=== PATIENT | male | born 1950 | race Caucasian/White ===

== ENCOUNTER 2017-04-02 18:03 | Inpatient (IN) | payer MEDICARE ==
[~2017-04-02] VITALS: Ht 175.3 cm; Wt 84.9 kg
[~2017-04-02 18:03] MED LIST: ALLO100T30 PO; HYDR12.53 PO; LEVO125T PO; LISI-167 PO
[2017-04-02 19:53] LABS: BLOOD UREA NITROGEN 23 mg/dL (7-18)
[2017-04-02] MEDS ORDERED: ASPIRIN 81 MG TABLET CHEW PO ONE (21:30)
[2017-04-02] MEDS ORDERED: ASPIRIN 81 MG TABLET CHEW ONE (21:41)
[2017-04-02] MEDS ORDERED: ASPI-496 PO (21:46)
[2017-04-02] MEDS ORDERED: LISI40TA PO (21:46)
[2017-04-02] MEDS ORDERED: ALLO100T30 PO (21:46)
[2017-04-02] MEDS ORDERED: POLYETHYLENE GLYCOL 17 GM PACKET PO PRN (22:00)
[2017-04-02] MEDS ORDERED: BISACODYL 10 MG SUPP PR PRN (22:00)
[2017-04-02] MEDS ORDERED: ATORVASTATIN 40 MG TABLET PO SCH (22:00)
[2017-04-02] MEDS ORDERED: DOCUSATE 100 MG CAPSULE PO PRN (22:00)
[2017-04-02] MEDS ORDERED: ACETAMINOPHEN 325 MG TABLET PO PRN (22:00)
[2017-04-02] MEDS ORDERED: LABETALOL 5MG/ML, 20ML IVPush PRN (22:00)
[2017-04-02] MEDS ORDERED: ENOXAPARIN 40 MG/0.4 ML SQ SCH (22:00)
[2017-04-03 00:57] VITALS: BP 168/96
[2017-04-03] MEDS ORDERED: ALLOPURINOL MC SCH (01:00)
[2017-04-03] MEDS ORDERED: LISINOPRIL 20 MG TABLET PO SCH ×2 (01:30→09:00)
[2017-04-03] MEDS ORDERED: ALLOPURINOL 300 MG TABLET PO SCH (01:30)
[2017-04-03 05:43] LABS: BLOOD UREA NITROGEN 21 mg/dL (7-18)
[2017-04-03 05:56] LABS: ASPARTATE AMINO TRANSFERASE 24 U/L (15-37)
[2017-04-03] MEDS ORDERED: LEVOTHYROXINE 125 MCG TABLET PO SCH (06:00)
[2017-04-03 07:09] VITALS: BP 129/86
[2017-04-03] MEDS ORDERED: GADOBUTROL 7.5 MMOL/7.5 ML PFS ONE (08:56)
[2017-04-03] MEDS ORDERED: CLOPIDOGREL 75 MG TABLET PO SCH (09:00)
[2017-04-03] MEDS ORDERED: ALLOPURINOL 100 MG TABLET PO SCH (09:00)
[2017-04-03 12:48] VITALS: BP 144/81
[2017-04-03] MEDS ORDERED: CLOP75TA PO (15:18)
[2017-04-03] MEDS ORDERED: ATOR40TA78 PO (15:18)
== END 2017-04-03 16:46 | disposition home or self-care (01) | DRG 66 ==
LOC: ED 21:08 → EDIP 21:09 → ED 21:18 → 4WST 04-03 00:41 → DCLOUNGE 04-03 16:25
PROVIDERS: ADMIT Internal Medicine; ATTEND Internal Medicine
DX: I63.9 Cerebral infarction, unspecified (principal); E03.9 Hypothyroidism, unspecified; I10 Essential (primary) hypertension; M10.9 Gout, unspecified; Z79.82 Long term (current) use of aspirin; Z82.3 Family history of stroke; Z82.49 Family history of ischemic heart disease and other diseases of the circulatory system; Z85.828 Personal history of other malignant neoplasm of skin; Z79.899 Other long term (current) drug therapy
CPT/HCPCS: 36415; 70450; 70553; 72125; 80048; 80053; 82040; 83735; 84439; 84443; 85025; 85610; 85730; 93005; 93880; A9585; J1650

== ENCOUNTER → 2017-06-26 | Day surgery (SDC) | payer MEDICARE ==
[~2017-06-26] MED LIST changes: +ASPI-496 PO; +ATOR40TA78 PO; +CLOP75TA PO; +LIDOCAINE/PF 1%-EPI 1:200K, 30 ML ONE; +LISI40TA PO
== END ==
LOC: CACL 10:37
PROVIDERS: ATTEND Internal Medicine Cardiovascular Disease
DX: I63.9 Cerebral infarction, unspecified (principal); I10 Essential (primary) hypertension; Z72.89 Other problems related to lifestyle
CPT/HCPCS: 33282; C1764; J3490

== ENCOUNTER → 2017-07-29 | Outpatient (CLI) | payer MEDICARE ==
[~2017-07-29] MED LIST changes: -LIDOCAINE/PF 1%-EPI 1:200K, 30 ML ONE
== END | disposition home or self-care (01) ==
LOC: CFH 12:23
PROVIDERS: ATTEND Internal Medicine Cardiovascular Disease
DX: I82.4Z2 Acute embolism and thrombosis of unspecified deep veins of left distal lower extremity (principal); Q21.1 Atrial septal defect; G45.8 Other transient cerebral ischemic attacks and related syndromes
CPT/HCPCS: 93970

== ENCOUNTER 2018-09-21 18:43 | Emergency (ER) | payer MEDICARE ==
[~2018-09-21] VITALS: Ht 175.3 cm; Wt 89.0 kg
[~2018-09-21 18:43] MED LIST changes: +HYDR12.517 PO; -HYDR12.53 PO
[2018-09-21 19:15] LABS: BASOPHILS # (AUTO) 0.02 x10^3/uL (0-0.1); BASOPHILS % (AUTO) 0 % (0-1); EOSINOPHILS % (AUTO) 0 % (1-7); LYMPHOCYTES # (AUTO) 0.67 x10^3/uL (1-3.4); LYMPHOCYTES % (AUTO) 6 % (22-44); MD NO; MEAN CORPUSCULAR HEMOGLOBIN 30.7 pg (27.5-34.5); MEAN CORPUSCULAR HGB CONC 33.7 g/dL (33.2-36.2); MEAN PLATELET VOLUME 9.6 fL (7.4-10.4); MONOCYTES # (AUTO) 0.38 x10^3/uL (0.2-0.8); MONOCYTES % (AUTO) 3 % (2-9); NEUTROPHILS # (AUTO) 11.09 x10^3/uL (1.8-6.8); NEUTROPHILS % (AUTO) 91 % (42-75); PLATELET COUNT 169 x10^3/uL (130-400); RED BLOOD COUNT 5.17 x10^6/uL (4.38-5.82); RED CELL DISTRIBUTION WIDTH 15.6 % (9.4-14.8)
[2018-09-21] MEDS ORDERED: SODIUM CHLORIDE 0.9% 1,000 ML IV ONE (19:25)
[2018-09-21 19:26] LABS: ALANINE AMINOTRANSFERASE 41 U/L (12-78); ALBUMIN 3.7 g/dL (3.4-5.0); ANION GAP 10 mmol/L (5-15); CALCIUM 8.9 mg/dL (8.5-10.1); CHLORIDE 104 mmol/L (98-107); CREATININE 1.54 mg/dL (0.7-1.3)
[2018-09-21 19:29] LABS: ALKALINE PHOSPHATASE 98 U/L (45-117); BILIRUBIN,TOTAL 0.7 mg/dL (0.2-1.0); TOTAL PROTEIN 7.3 g/dL (6.4-8.2)
[2018-09-21] MEDS ORDERED: HYDROmorphone 2 MG/ML, 1ML IVPush PRN (19:30)
[2018-09-21] MEDS ORDERED: SODIUM CHLORIDE FLUSH 10ML SYR IVF ONE (19:30)
[2018-09-21] MEDS ORDERED: ONDANSETRON 2MG/ML, 2ML IVPush ONE (19:30)
[2018-09-21] MEDS ORDERED: ONDANSETRON 2MG/ML, 2ML ONE (19:46)
[2018-09-21] MEDS ORDERED: KETOROLAC 30 MG/1 ML ONE (19:46)
[2018-09-21] MEDS ORDERED: HYDROmorphone 2 MG/ML, 1ML ONE (19:47)
[2018-09-21] MEDS ORDERED: KETOROLAC 30 MG/1 ML IVPush ONE (20:00)
[2018-09-21 20:03] LABS: MICROSCOPIC AUTO
[2018-09-21 20:05] LABS: CULTURE INDICATED? NO
[2018-09-21 21:07] VITALS: BP 147/70
== END 2018-09-21 21:09 | disposition home or self-care (01) ==
LOC: ED 20:50
DX: N13.2 Hydronephrosis with renal and ureteral calculous obstruction (principal); I10 Essential (primary) hypertension; Z85.850 Personal history of malignant neoplasm of thyroid
CPT/HCPCS: 36415; 74176; 80053; 81001; 85025; 96374; 96375; 99284; J1170; J1885; J2405; J7030

== ENCOUNTER 2018-10-14 10:41 | Day surgery (SDC) | payer MEDICARE ==
[2018-10-14] MEDS ORDERED: LIDOCAINE 2%, 20ML ONE (11:11)
[2018-10-14] MEDS ORDERED: MAGN400T36 PO (11:28)
[2018-10-14] MEDS ORDERED: CHOL100012 PO (11:28)
[2018-10-14] MEDS ORDERED: UBIQ100C3 PO (11:28)
[2018-10-14] MEDS ORDERED: VITA1TAB19 PO (11:28)
== END 2018-10-14 12:40 | disposition home or self-care (01) ==
LOC: CACL 10:41
PROVIDERS: ATTEND Internal Medicine Cardiovascular Disease
DX: Z45.09 Encounter for adjustment and management of other cardiac device (principal); I10 Essential (primary) hypertension; E78.5 Hyperlipidemia, unspecified; F10.10 Alcohol abuse, uncomplicated; Z85.850 Personal history of malignant neoplasm of thyroid; Z86.73 Personal history of transient ischemic attack (TIA), and cerebral infarction without residual deficits; Z79.899 Other long term (current) drug therapy; Z98.890 Other specified postprocedural states; Z80.42 Family history of malignant neoplasm of prostate; Z82.49 Family history of ischemic heart disease and other diseases of the circulatory system
CPT/HCPCS: 33286; J3490; 33284; 33285; C1764

== ENCOUNTER 2019-04-16 10:03 | Emergency (ER) | payer MEDICARE ==
[~2019-04-16 10:03] MED LIST changes: +CHOL100012 PO; +MAGN400T36 PO; +UBIQ100C3 PO; +VITA1TAB19 PO
--- NOTE | 2019-04-16 10:34 | NUR ---
PT AMBULATORY TO ROOM. STATES HE HAS RIGHT ARM NUMBNESS THAT BEGAN AT 0600 THIS MORNING ALONG WITH DIFFICULTY MOVING ARM. PT NOW MOVING ARM APPROPRIATELY BUT STATES THE NUMBNESS IS STILL THERE. DENIES N/T ANYWHERE ELSE. SENSATION EQUAL BILATERALLY. NADN. VSS. PT RESTING IN [place]. CALL LIGHT IN REACH.
--- NOTE | 2019-04-16 11:00 | NUR ---
MD AT BEDSIDE TO UPDATE PT ON POC. SWALLOW EVALUATION PERFORMED. NO SWALLOWING ISSUES NOTED. NADN. CALL LIGHT IN REACH. PT RESTING IN [facility].
[2019-04-16] MEDS ORDERED: SODIUM CHLORIDE FLUSH 10ML SYR IVF ONE (11:30)
[2019-04-16 11:54] LABS: BASOPHILS # (AUTO) 0.02 x10^3/uL (0-0.1); BASOPHILS % (AUTO) 0 % (0-1); EOSINOPHILS # (AUTO) 0.05 x10^3/uL (0-0.4); EOSINOPHILS % (AUTO) 1 % (1-7); LYMPHOCYTES # (AUTO) 0.95 x10^3/uL (1-3.4); LYMPHOCYTES % (AUTO) 14 % (22-44); MD NO; MEAN CORPUSCULAR HEMOGLOBIN 30.1 pg (27.5-34.5); MEAN CORPUSCULAR HGB CONC 32.4 g/dL (33.2-36.2); MEAN CORPUSCULAR VOLUME 92.7 fL (81-97); MEAN PLATELET VOLUME 9.2 fL (7.4-10.4); MONOCYTES # (AUTO) 0.51 x10^3/uL (0.2-0.8); MONOCYTES % (AUTO) 8 % (2-9); NEUTROPHILS # (AUTO) 5.18 x10^3/uL (1.8-6.8); NEUTROPHILS % (AUTO) 77 % (42-75); PLATELET COUNT 153 x10^3/uL (130-400); RED BLOOD COUNT 4.82 x10^6/uL (4.38-5.82); RED CELL DISTRIBUTION WIDTH 15.1 % (9.4-14.8)
--- NOTE | 2019-04-16 11:59 | NUR ---
PT BACK FROM MRI. VSS. COFFEY. CALL LIGHT IN REACH. PT RESTING IN [facility].
[2019-04-16 12:02] LABS: INTERNATIONAL NORMALIZED RATIO 1.04 (0.93-1.1); PROTHROMBIN TIME 10.9 Seconds (9.6-11.5)
[2019-04-16 12:03] LABS: ALBUMIN 3.7 g/dL (3.4-5.0); ANION GAP 5 mmol/L (5-15); CALCIUM 8.9 mg/dL (8.5-10.1); CHLORIDE 111 mmol/L (98-107); CREATININE 0.96 mg/dL (0.7-1.3)
--- NOTE | 2019-04-16 13:09 | NUR ---
PT RESTING ON [employer]. VSS. COFFEY. CALL LIGHT IN REACH.
[2019-04-16 13:42] VITALS: BP 126/78
--- NOTE | 2019-04-16 13:42 | NUR ---
PT RESTING ON GURNEY. NADN. [facility]. UPDATED ON POC FOR US.
== END 2019-04-16 14:37 | disposition home or self-care (01) ==
LOC: ED 14:35
DX: G56.21 Lesion of ulnar nerve, right upper limb (principal); E03.9 Hypothyroidism, unspecified; M10.9 Gout, unspecified; Z86.73 Personal history of transient ischemic attack (TIA), and cerebral infarction without residual deficits
CPT/HCPCS: 36415; 70551; 80048; 82040; 85025; 85610; 85730; 93880; 99284

== ENCOUNTER → 2019-10-21 | Outpatient (CLI) | payer MEDICARE | END | disposition home or self-care (01) | LOC: CFH 09:47 | PROVIDERS: ATTEND Student in an Organized Health Care Education/Training Program | DX: N28.1 Cyst of kidney, acquired (principal); N20.0 Calculus of kidney; N20.1 Calculus of ureter | CPT/HCPCS: 74176 ==

== ENCOUNTER → 2020-02-14 | Outpatient (CLI) | payer MEDICARE | END | disposition home or self-care (01) | LOC: CVU 10:30 | PROVIDERS: ATTEND Internal Medicine Cardiovascular Disease | DX: I11.9 Hypertensive heart disease without heart failure (principal); Q21.1 Atrial septal defect | CPT/HCPCS: 93306 ==